=== PATIENT | female | born 1980 | race Hispanic/Latino ===

== ENCOUNTER 2017-07-19 19:39 | Emergency (ER) | payer OTHER ==
[2017-07-19 20:16] LABS: APPEARANCE,URINE Clear (CLEAR); BILIRUBIN,URINE Negative (NEGATIVE); COLOR,URINE Yellow (YELLOW); GLUCOSE, URINE (UA) Negative (NEGATIVE); KETONES,URINE Negative (NEGATIVE); LEUKOCYTE ESTERASE ,URINE Negative (NEGATIVE); NITRATE,URINE Negative (NEGATIVE); OCCULT BLOOD,URINE Negative (NEGATIVE); PROTEIN,URINE Negative (NEGATIVE)
[2017-07-19 20:17] LABS: HCG,QUAL RESULT NEGATIVE (NEGATIVE)
[2017-07-19] MEDS ORDERED: KETOROLAC TROMETHAMINE 30MG/ML ONE (20:22)
[2017-07-19 20:33] LABS: BASOPHILS % (AUTO) 0.9 % (0.0-5.0); EOSINOPHILS % (AUTO) 2.7 % (0.0-8.0); HEMATOCRIT 39.5 % (36-48); LYMPHOCYTES % (AUTO) 31.3 % (21.0-51.0); MEAN CORPUSCULAR HEMOGLOBIN 30.7 pg (27.0-33.0); MEAN CORPUSCULAR VOLUME 87.8 fL (79-99); NEUTROPHILS % (AUTO) 57.1 % (40.0-77.0); PLATELET COUNT (AUTO) 184 K/uL (130-400); RED CELL DISTRIBUTION WIDTH 12.9 % (11.0-15.5); WHITE BLOOD COUNT (AUTO) 9.2 K/uL (4.8-10.8)
[2017-07-19 20:41] LABS: CREATININE 0.6 mg/dL (0.5-1.5); POTASSIUM 3.8 mmol/L (3.5-5.1)
== END 2017-07-19 21:27 | disposition home or self-care (01) ==
LOC: EDH 19:39
DX: D25.9 Leiomyoma of uterus, unspecified (principal); Z88.0 Allergy status to penicillin; Z88.5 Allergy status to narcotic agent; Z90.49 Acquired absence of other specified parts of digestive tract; Z98.890 Other specified postprocedural states
CPT/HCPCS: 36415; 74176; 80048; 81003; 81025; 85025; 96372; 99285; J1885

== ENCOUNTER 2018-02-01 19:12 | Emergency (ER) | payer OTHER | END 2018-02-01 20:42 | disposition home or self-care (01) | LOC: EDH 19:12 | DX: J06.9 Acute upper respiratory infection, unspecified (principal); R09.82 Postnasal drip; Z88.0 Allergy status to penicillin; Z88.6 Allergy status to analgesic agent; Z90.49 Acquired absence of other specified parts of digestive tract ==

== ENCOUNTER 2019-07-05 12:51 | Emergency (ER) | payer SELFPAY | END 2019-07-05 13:30 | disposition home or self-care (01) | LOC: EDH 12:51 | DX: G44.209 Tension-type headache, unspecified, not intractable (principal); H92.01 Otalgia, right ear; Z88.0 Allergy status to penicillin; Z88.6 Allergy status to analgesic agent; Z90.710 Acquired absence of both cervix and uterus; Z79.899 Other long term (current) drug therapy | CPT/HCPCS: 99282 ==

== ENCOUNTER 2019-08-22 | Emergency (ER) | payer SELFPAY | END 2019-08-22 03:18 | disposition home or self-care (01) ==

== ENCOUNTER 2020-05-24 03:30 | Emergency (ER) | payer OTHER ==
[2020-05-24] MEDS ORDERED: KETOROLAC TROMETHAMINE 30MG/ML ONE (05:22)
[2020-05-24] MEDS ORDERED: LORAZEPAM 2 MG/ML 1 ML VIAL ONE (05:22)
== END 2020-05-24 07:57 | disposition home or self-care (01) ==
LOC: EDH 03:30
DX: G89.29 Other chronic pain (principal); M54.2 Cervicalgia; M48.00 Spinal stenosis, site unspecified; Z90.49 Acquired absence of other specified parts of digestive tract; Z90.710 Acquired absence of both cervix and uterus; Z88.5 Allergy status to narcotic agent; Z88.0 Allergy status to penicillin
CPT/HCPCS: 72125; 96374; 99284; J1885; J2060

== ENCOUNTER → 2020-07-14 | Outpatient (CLI) | payer OTHER | END | disposition home or self-care (01) | LOC: RAH 14:13 | PROVIDERS: ATTEND Internal Medicine | DX: M41.85 Other forms of scoliosis, thoracolumbar region (principal) | CPT/HCPCS: 72082 ==

== ENCOUNTER 2022-02-13 17:17 | Emergency (ER) | payer OTHER ==
[~2022-02-13] VITALS: Ht 154.9 cm; Wt 99.3 kg
[2022-02-13 17:47] VITALS: BP 157/89
[2022-02-13] MEDS ORDERED: GUAIF10 PO (20:30)
[2022-02-13] MEDS ORDERED: IBUP-2070 PO (20:30)
[2022-02-13] MEDS ORDERED: P-EP-94 PO (20:30)
== END 2022-02-13 20:45 | disposition home or self-care (01) ==
LOC: EDH 17:17
DX: U07.1 COVID-19 (principal); Z79.1 Long term (current) use of non-steroidal anti-inflammatories (NSAID); Z88.5 Allergy status to narcotic agent; Z90.49 Acquired absence of other specified parts of digestive tract; Z79.899 Other long term (current) drug therapy
CPT/HCPCS: 99283; 87635; 87804 ×2; C9803

== ENCOUNTER 2022-04-15 01:27 | Emergency (ER) | payer OTHER ==
[~2022-04-15] VITALS: Ht 157.5 cm; Wt 101.6 kg
[~2022-04-15 01:27] MED LIST: GUAIF10 PO; IBUP-2070 PO; P-EP-94 PO
[2022-04-15] MEDS ORDERED: KETOROLAC 60 MG VIAL (30MG/ML) IM ONE (02:00)
[2022-04-15 02:44] VITALS: BP 124/68
[2022-04-15] MEDS ORDERED: GABA300C PO (02:58)
== END 2022-04-15 03:10 | disposition home or self-care (01) ==
LOC: EDH 01:27
DX: R20.2 Paresthesia of skin (principal); M79.661 Pain in right lower leg; M79.662 Pain in left lower leg; Z79.899 Other long term (current) drug therapy; Z88.5 Allergy status to narcotic agent; Z90.49 Acquired absence of other specified parts of digestive tract; Z98.890 Other specified postprocedural states
CPT/HCPCS: 99285; 70450; 72125; 96372; J1885

== ENCOUNTER 2022-06-21 12:36 | Emergency (ER) | payer OTHER ==
[~2022-06-21] VITALS: Ht 154.9 cm; Wt 104.3 kg
[~2022-06-21 12:36] MED LIST changes: +GABA300C PO
[2022-06-21 12:52] VITALS: BP 126/81
[2022-06-21 13:15] LABS: APPEARANCE,URINE CLEAR (CLEAR); BILIRUBIN,URINE NEGATIVE (NEGATIVE); COLOR,URINE LIGHT-YELLOW (YELLOW); GLUCOSE, URINE (UA) NEGATIVE (NEGATIVE); KETONES,URINE NEGATIVE (NEGATIVE); LEUKOCYTE ESTERASE ,URINE NEGATIVE Leu/uL (NEGATIVE); NITRATE,URINE NEGATIVE (NEGATIVE); PROTEIN,URINE NEGATIVE (NEGATIVE); UROBILINOGEN,URINE 0.2 mg/dL (0.2-1.0)
[2022-06-21 13:20] LABS: RBC,URINE 0-1 /HPF (0-1); SQUAMOUS EPITHELIAL CELL,UR RARE /HPF (0-2); WBC,URINE 0-1 /HPF (0-1)
[2022-06-21] MEDS ORDERED: KETOROLAC 15MG/ML VIAL (15MG/ML) IM ONE (13:30)
[2022-06-21] MEDS ORDERED: LIDOCAINE 5% TOPICAL PATCH TP ONE (13:30)
[2022-06-21] MEDS ORDERED: CYCLOBENZAPRINE HCL 10 MG TABLET PO ONE (13:30)
[2022-06-21] MEDS ORDERED: KETO10TA2 PO (16:08)
== END 2022-06-21 16:23 | disposition home or self-care (01) ==
LOC: EDH 12:36
DX: G89.29 Other chronic pain (principal); M54.50 Low back pain, unspecified; K21.9 Gastro-esophageal reflux disease without esophagitis; M19.90 Unspecified osteoarthritis, unspecified site; Z79.899 Other long term (current) drug therapy; Z88.5 Allergy status to narcotic agent; Z90.49 Acquired absence of other specified parts of digestive tract
CPT/HCPCS: 99283; 81001; 96372; J1885

== ENCOUNTER → 2024-03-12 | Outpatient (CLI) | payer OTHER ==
[~2024-03-12] MED LIST changes: +GUAI100L96 PO; -GUAIF10 PO; +KETO10TA2 PO
--- NOTE | 2024-03-12 17:10 | HMCIMG ---
CHEST 2VWS REASON: ASTHMA COMPARISON: None FINDINGS: Two views of the chest were obtained. Lungs are clear. Heart size is normal. There is no pulmonary vascular congestion. Mediastinum and bony thorax appear unremarkable. IMPRESSION: Normal two view chest x-ray.
== END | disposition home or self-care (01) ==
LOC: RAH 16:02
PROVIDERS: ATTEND Internal Medicine
DX: J45.909 Unspecified asthma, uncomplicated (principal)
CPT/HCPCS: 71046

== ENCOUNTER → 2024-07-01 | Emergency (ER) | payer OTHER ==
[~2024-07-01] VITALS: Ht 154.9 cm; Wt 104.3 kg
[2024-07-01 23:07] VITALS: BP 135/74; PULSE 83; RESP 20; TEMP 98.1
--- NOTE | 2024-07-02 01:25 | NUR ---
CALLED FOR PT TO MOVE TO ROOM. NO RESPONSE; PT NOT FOUND IN LOBBY.
--- NOTE | 2024-07-02 01:35 | NUR ---
CALLED FOR PT IN LOBBY TO MOVE TO ROOM. NO RESPONSE.
== END ==
LOC: EDH 23:04
DX: M54.50 Low back pain, unspecified (principal); Z53.21 Procedure and treatment not carried out due to patient leaving prior to being seen by health care provider